=== PATIENT | male | born 1975 | race Caucasian/White ===

== ENCOUNTER 2020-07-24 21:35 | Emergency (ER) | payer OTHER ==
[~2020-07-24] VITALS: Ht 188 cm; Wt 120.7 kg
[2020-07-24 21:57] VITALS: BP 139/88; Ht 188 cm; Wt 120.7 kg
== END 2020-07-24 23:04 | disposition left against medical advice (07) ==
LOC: ED 21:35
DX: Z53.21 Procedure and treatment not carried out due to patient leaving prior to being seen by health care provider (principal)